=== PATIENT | male | born 1975 | race Caucasian/White ===

== ENCOUNTER 2016-12-01 11:46 | Emergency (ER) | payer MEDICAID ==
[~2016-12-01] VITALS: Ht 175.3 cm; Wt 77.0 kg
[~2016-12-01 11:46] MED LIST: ALBU8.5H3 INH; BUDE10.2 INH; BUSPAR PO; DIVA125T2 PO; DIVA500T2 PO; HALDOL PO; HYDR50CA PO; OMEP40CA6 PO; RISP2TAB3 PO; ZIPR60CA2 PO
[2016-12-01 11:49] VITALS: BP 143/76
[2016-12-01] MEDS ORDERED: ONDANSETRON ODT 4 MG ONE (13:14)
[2016-12-01] MEDS ORDERED: IBUPROFEN 200 MG TABLET ONE (13:14)
[2016-12-01] MEDS ORDERED: IBUPROFEN 200 MG TABLET PO ONE (13:30)
[2016-12-01] MEDS ORDERED: ONDANSETRON ODT 4 MG PO ONE (13:30)
== END 2016-12-01 13:41 | disposition home or self-care (01) ==
LOC: ED 13:38
DX: G43.909 Migraine, unspecified, not intractable, without status migrainosus (principal); I10 Essential (primary) hypertension; E11.9 Type 2 diabetes mellitus without complications; F20.9 Schizophrenia, unspecified; R51 Headache; G89.29 Other chronic pain
CPT/HCPCS: 99283; Q0162

== ENCOUNTER 2016-12-12 11:48 | Emergency (ER) | payer MEDICAID, OTHER ==
[~2016-12-12] VITALS: Ht 165.1 cm; Wt 73.0 kg
[2016-12-12 11:51] VITALS: BP 143/84
[2016-12-12] MEDS ORDERED: HYDROcodone/APAP 5/325 TABLET PO ONE (12:30)
[2016-12-12] MEDS ORDERED: HYDROcodone/APAP 5/325 TABLET ONE (12:43)
== END 2016-12-12 13:04 | disposition home or self-care (01) ==
LOC: ED 12:55
DX: S83.92XA Sprain of unspecified site of left knee, initial encounter (principal); X58.XXXA Exposure to other specified factors, initial encounter; Y93.89 Activity, other specified; Y92.89 Other specified places as the place of occurrence of the external cause; Y99.8 Other external cause status
CPT/HCPCS: 99284

== ENCOUNTER 2017-01-04 18:41 | Emergency (ER) | payer MEDICAID, OTHER ==
[~2017-01-04] VITALS: Ht 152.4 cm; Wt 76.3 kg
[2017-01-04 19:48] VITALS: BP 127/67
[2017-01-04 19:50] LABS: BLOOD UREA NITROGEN 11 mg/dL (7-18)
[2017-01-04 19:55] LABS: IS PT STATUS REG ER OR PRE ER? YES
== END 2017-01-04 20:34 | disposition home or self-care (01) ==
LOC: ED 20:20
DX: J44.1 Chronic obstructive pulmonary disease with (acute) exacerbation (principal); G43.909 Migraine, unspecified, not intractable, without status migrainosus; I10 Essential (primary) hypertension; E11.9 Type 2 diabetes mellitus without complications; K21.9 Gastro-esophageal reflux disease without esophagitis; F20.9 Schizophrenia, unspecified
CPT/HCPCS: 36415; 71020; 80048; 82040; 84484; 85025; 93005; 99285

== ENCOUNTER 2017-03-04 11:35 | Emergency (ER) | payer MEDICAID ==
[~2017-03-04] VITALS: Ht 167.6 cm; Wt 77.2 kg
[2017-03-04 11:36] VITALS: BP 145/75
== END 2017-03-04 12:26 | disposition home or self-care (01) ==
LOC: ED 12:12
DX: J45.41 Moderate persistent asthma with (acute) exacerbation (principal); E11.9 Type 2 diabetes mellitus without complications; I10 Essential (primary) hypertension; F20.9 Schizophrenia, unspecified; F31.9 Bipolar disorder, unspecified
CPT/HCPCS: 99283

== ENCOUNTER 2017-05-09 17:40 | Emergency (ER) | payer MEDICAID ==
[~2017-05-09] VITALS: Ht 170.2 cm; Wt 75.8 kg
[~2017-05-09 17:40] MED LIST changes: -ALBU8.5H3 INH; +ALBU8.5H8 INH
[2017-05-09] MEDS ORDERED: SUMA100T4 PO (17:57)
[2017-05-09] MEDS ORDERED: PROCHLORPERAZINE 5 MG/ML, 2ML ONE (18:18)
[2017-05-09] MEDS ORDERED: DIPHENHYDRAMINE 50 MG/ML, 1ML ONE (18:18)
[2017-05-09] MEDS ORDERED: DIPHENHYDRAMINE 50 MG/ML, 1ML IVPush ONE (18:30)
[2017-05-09] MEDS ORDERED: PROCHLORPERAZINE 5 MG/ML, 2ML IVPush ONE (18:30)
[2017-05-09] MEDS ORDERED: SODIUM CHLORIDE 0.9% 1,000ML IVBOLUS ONE (18:30)
[2017-05-09] MEDS ORDERED: SODIUM CHLORIDE FLUSH 10ML SYR IVF ONE (18:30)
[2017-05-09] MEDS ORDERED: MORPHINE SULFATE 4 MG/ML, 1ML ONE (19:23)
[2017-05-09] MEDS ORDERED: MORPHINE SULFATE 4 MG/ML, 1ML IVPush PRN (19:30)
[2017-05-09 21:02] VITALS: BP 131/76
== END 2017-05-09 21:04 | disposition home or self-care (01) ==
LOC: ED 18:52
DX: G44.89 Other headache syndrome (principal); I10 Essential (primary) hypertension; E11.9 Type 2 diabetes mellitus without complications; J44.9 Chronic obstructive pulmonary disease, unspecified; F20.9 Schizophrenia, unspecified; K21.9 Gastro-esophageal reflux disease without esophagitis; F31.9 Bipolar disorder, unspecified; Z88.6 Allergy status to analgesic agent
CPT/HCPCS: 70450; 96361; 96374; 96375; 99285; J0780; J1200; J7030

== ENCOUNTER 2017-05-17 12:35 | Emergency (ER) | payer MEDICAID ==
[~2017-05-17] VITALS: Ht 170.2 cm; Wt 74.5 kg
[~2017-05-17 12:35] MED LIST changes: +SUMA100T4 PO
[2017-05-17 12:36] VITALS: BP 166/79
[2017-05-17] MEDS ORDERED: HYDROcodone/APAP 5/325 TABLET PO ONE (13:30)
[2017-05-17] MEDS ORDERED: HYDROcodone/APAP 5/325 TABLET ONE (13:51)
== END 2017-05-17 14:20 | disposition home or self-care (01) ==
LOC: ED 14:17
DX: S22.42XA Multiple fractures of ribs, left side, initial encounter for closed fracture (principal); E11.9 Type 2 diabetes mellitus without complications; F20.9 Schizophrenia, unspecified; F31.9 Bipolar disorder, unspecified; I10 Essential (primary) hypertension; J44.9 Chronic obstructive pulmonary disease, unspecified; G89.29 Other chronic pain; R51 Headache; V29.3XXA Motorcycle rider (driver) (passenger) injured in unspecified nontraffic accident, initial encounter; Y93.55 Activity, bike riding; Y92.480 Sidewalk as the place of occurrence of the external cause; Y99.8 Other external cause status
CPT/HCPCS: 99284

== ENCOUNTER 2017-07-06 02:20 | Emergency (ER) | payer SELFPAY ==
[~2017-07-06] VITALS: Ht 170.2 cm; Wt 74.3 kg
[2017-07-06 02:22] VITALS: BP 150/86
[2017-07-06] MEDS ORDERED: HYDROcodone/APAP 5/325 TABLET PO ONE (03:00)
[2017-07-06] MEDS ORDERED: HYDROcodone/APAP 5/325 TABLET ONE (03:01)
== END 2017-07-06 04:24 | disposition home or self-care (01) ==
LOC: ED 02:38
DX: M54.12 Radiculopathy, cervical region (principal); I10 Essential (primary) hypertension; J44.9 Chronic obstructive pulmonary disease, unspecified; G43.909 Migraine, unspecified, not intractable, without status migrainosus; E11.9 Type 2 diabetes mellitus without complications
CPT/HCPCS: 72125; 99284; J7512

== ENCOUNTER 2017-07-28 06:12 | Emergency (ER) | payer SELFPAY ==
[~2017-07-28] VITALS: Ht 170.2 cm; Wt 74.8 kg
[2017-07-28 07:06] VITALS: BP 119/78
[2017-07-28] MEDS ORDERED: OXYcodone/APAP 5/325MG TABLET ONE (07:13)
[2017-07-28] MEDS ORDERED: IBUPROFEN 200 MG TABLET ONE (07:13)
[2017-07-28] MEDS ORDERED: DIAZEPAM 5 MG TABLET ONE (07:14)
[2017-07-28] MEDS ORDERED: DIAZEPAM 5 MG TABLET PO ONE (07:30)
[2017-07-28] MEDS ORDERED: OXYcodone/APAP 5/325MG TABLET PO ONE (07:30)
[2017-07-28] MEDS ORDERED: IBUPROFEN 200 MG TABLET PO ONE (07:30)
== END 2017-07-28 08:02 | disposition home or self-care (01) ==
LOC: ED 06:46
DX: S46.911A Strain of unspecified muscle, fascia and tendon at shoulder and upper arm level, right arm, initial encounter (principal); M54.12 Radiculopathy, cervical region; G43.909 Migraine, unspecified, not intractable, without status migrainosus; I10 Essential (primary) hypertension; E11.9 Type 2 diabetes mellitus without complications; J44.9 Chronic obstructive pulmonary disease, unspecified; K21.9 Gastro-esophageal reflux disease without esophagitis; X58.XXXA Exposure to other specified factors, initial encounter; Y93.89 Activity, other specified; Y92.89 Other specified places as the place of occurrence of the external cause; Y99.8 Other external cause status
CPT/HCPCS: 99284

== ENCOUNTER 2018-04-17 12:27 | Emergency (ER) | payer SELFPAY ==
[~2018-04-17] VITALS: Ht 167.6 cm; Wt 79.1 kg
[2018-04-17] MEDS ORDERED: SODIUM CHLORIDE 0.9% 1,000ML IVBOLUS ONE (13:00)
[2018-04-17] MEDS ORDERED: MORPHINE SULFATE 4 MG/ML, 1ML IVPush PRN (13:00)
[2018-04-17] MEDS ORDERED: SODIUM CHLORIDE FLUSH 10ML SYR IVF ONE (13:00)
[2018-04-17 13:24] LABS: BASOPHILS # (AUTO) 0.03 x10^3/uL (0-0.1); BASOPHILS % (AUTO) 1 % (0-1); EOSINOPHILS % (AUTO) 0 % (1-7); LYMPHOCYTES # (AUTO) 0.92 x10^3/uL (1-3.4); LYMPHOCYTES % (AUTO) 16 % (22-44); MD NO; MEAN CORPUSCULAR HEMOGLOBIN 28.3 pg (27.5-34.5); MEAN CORPUSCULAR HGB CONC 33.6 g/dL (33.2-36.2); MEAN CORPUSCULAR VOLUME 84.1 fL (81-97); MEAN PLATELET VOLUME 8.7 fL (7.4-10.4); MONOCYTES # (AUTO) 0.44 x10^3/uL (0.2-0.8); MONOCYTES % (AUTO) 8 % (2-9); NEUTROPHILS # (AUTO) 4.35 x10^3/uL (1.8-6.8); NEUTROPHILS % (AUTO) 76 % (42-75); PLATELET COUNT 211 x10^3/uL (130-400); RED BLOOD COUNT 4.81 x10^6/uL (4.38-5.82)
[2018-04-17 13:33] LABS: ALANINE AMINOTRANSFERASE 21 U/L (12-78); ALBUMIN 3.5 g/dL (3.4-5.0); ANION GAP 4 mmol/L (5-15); CALCIUM 8.5 mg/dL (8.5-10.1); CHLORIDE 108 mmol/L (98-107); CREATININE 0.93 mg/dL (0.7-1.3)
[2018-04-17 13:36] LABS: ALKALINE PHOSPHATASE 66 U/L (45-117); BILIRUBIN,TOTAL 0.3 mg/dL (0.2-1.0); TOTAL PROTEIN 6.7 g/dL (6.4-8.2)
[2018-04-17] MEDS ORDERED: MORPHINE SULFATE 4 MG/ML, 1ML ONE (14:03)
[2018-04-17] MEDS ORDERED: OMNIPAQUE 350 MG/ML, 100ML BOTTLE ONE (14:40)
[2018-04-17 15:37] LABS: MICROSCOPIC NOT IND
[2018-04-17 15:43] LABS: CULTURE INDICATED? NO
[2018-04-17] MEDS ORDERED: ACETAMINOPHEN 500 MG TABLET ONE (15:55)
[2018-04-17 15:59] VITALS: BP 129/66
[2018-04-17] MEDS ORDERED: ACETAMINOPHEN 500 MG TABLET PO ONE (16:00)
== END 2018-04-17 16:27 | disposition home or self-care (01) ==
LOC: ED 15:24
DX: R10.33 Periumbilical pain (principal); R19.7 Diarrhea, unspecified; G43.909 Migraine, unspecified, not intractable, without status migrainosus; J44.9 Chronic obstructive pulmonary disease, unspecified; K21.9 Gastro-esophageal reflux disease without esophagitis; F31.9 Bipolar disorder, unspecified; F17.200 Nicotine dependence, unspecified, uncomplicated; F20.9 Schizophrenia, unspecified; R10.84 Generalized abdominal pain
CPT/HCPCS: 36415; 74177; 80053; 81003; 83605; 83690; 85025; 96361; 96374; 99285; J7030; Q9967

== ENCOUNTER 2018-06-08 01:39 | Emergency (ER) | payer SELFPAY ==
[~2018-06-08] VITALS: Ht 167.6 cm; Wt 75.6 kg
[2018-06-08] MEDS ORDERED: ACETAMINOPHEN 500 MG TABLET PO ONE (02:00)
[2018-06-08] MEDS ORDERED: ACETAMINOPHEN 500 MG TABLET ONE (02:14)
[2018-06-08] MEDS ORDERED: HYDROcodone/APAP 5/325 TABLET PO ONE (03:30)
[2018-06-08] MEDS ORDERED: HYDROcodone/APAP 5/325 TABLET ONE (03:34)
[2018-06-08 03:36] VITALS: BP 122/72
== END 2018-06-08 03:48 | disposition home or self-care (01) ==
LOC: ED 02:54
DX: S92.355A Nondisplaced fracture of fifth metatarsal bone, left foot, initial encounter for closed fracture (principal); J44.9 Chronic obstructive pulmonary disease, unspecified; K21.9 Gastro-esophageal reflux disease without esophagitis; J45.909 Unspecified asthma, uncomplicated; F20.9 Schizophrenia, unspecified; F17.200 Nicotine dependence, unspecified, uncomplicated; X58.XXXA Exposure to other specified factors, initial encounter; Y93.89 Activity, other specified; Y92.89 Other specified places as the place of occurrence of the external cause; Y99.8 Other external cause status
CPT/HCPCS: 99284

== ENCOUNTER 2018-08-15 20:17 | Emergency (ER) | payer SELFPAY ==
[~2018-08-15] VITALS: Ht 167.6 cm; Wt 75.0 kg
--- NOTE | 2018-08-15 20:35 | NUR ---
Assumed care of patient. C/O COREA and "pain from my head to my toes." C/O N/V. Will continue to monitor.
[2018-08-15 20:58] LABS: BASOPHILS # (AUTO) 0.02 x10^3/uL (0-0.1); BASOPHILS % (AUTO) 0 % (0-1); EOSINOPHILS # (AUTO) 0.11 x10^3/uL (0-0.4); EOSINOPHILS % (AUTO) 2 % (1-7); LYMPHOCYTES # (AUTO) 1.34 x10^3/uL (1-3.4); LYMPHOCYTES % (AUTO) 25 % (22-44); MD NO; MEAN CORPUSCULAR HEMOGLOBIN 29.6 pg (27.5-34.5); MEAN CORPUSCULAR HGB CONC 33.4 g/dL (33.2-36.2); MEAN CORPUSCULAR VOLUME 88.6 fL (81-97); MEAN PLATELET VOLUME 8.5 fL (7.4-10.4); MONOCYTES # (AUTO) 0.39 x10^3/uL (0.2-0.8); MONOCYTES % (AUTO) 7 % (2-9); NEUTROPHILS # (AUTO) 3.63 x10^3/uL (1.8-6.8); NEUTROPHILS % (AUTO) 66 % (42-75); PLATELET COUNT 231 x10^3/uL (130-400); RED BLOOD COUNT 4.85 x10^6/uL (4.38-5.82); RED CELL DISTRIBUTION WIDTH 17.5 % (9.4-14.8)
[2018-08-15 21:12] LABS: ALBUMIN 3.4 g/dL (3.4-5.0); ANION GAP 6 mmol/L (5-15); CHLORIDE 109 mmol/L (98-107)
[2018-08-15 21:16] LABS: ALANINE AMINOTRANSFERASE 23 U/L (12-78); ALKALINE PHOSPHATASE 48 U/L (45-117); BILIRUBIN,TOTAL 0.4 mg/dL (0.2-1.0); CREATININE 0.73 mg/dL (0.7-1.3)
[2018-08-15] MEDS ORDERED: HYDROcodone/APAP 5/325 TABLET ONE (21:16)
[2018-08-15] MEDS ORDERED: ONDANSETRON ODT 4 MG ONE (21:16)
[2018-08-15 21:19] VITALS: BP 109/52
--- NOTE | 2018-08-15 21:20 | NUR ---
Meds admin. VSS. No other needs. Encouraged patient to provide UA.
[2018-08-15] MEDS ORDERED: ONDANSETRON ODT 4 MG PO ONE (21:30)
[2018-08-15] MEDS ORDERED: HYDROcodone/APAP 5/325 TABLET PO ONE (21:30)
--- NOTE | 2018-08-15 21:40 | NUR ---
MD Santana states to DC patient without waiting for urine.
--- NOTE | 2018-08-15 21:49 | NUR ---
Patient/Caregiver given discharge instructions and they have confirmed that they understand the instructions. Patient ambulatory with steady gait.
== END 2018-08-15 21:50 | disposition home or self-care (01) ==
LOC: ED 21:10
DX: K57.32 Diverticulitis of large intestine without perforation or abscess without bleeding (principal); J44.9 Chronic obstructive pulmonary disease, unspecified; K21.9 Gastro-esophageal reflux disease without esophagitis
CPT/HCPCS: 36415; 80053; 83690; 85025; 99283; Q0162

== ENCOUNTER 2018-09-04 03:31 | Emergency (ER) | payer SELFPAY ==
[~2018-09-04] VITALS: Ht 168.9 cm; Wt 75.3 kg
--- NOTE | 2018-09-04 03:44 | NUR ---
GENTLEMAN HERE NOTING THAT YESTERDAY MORNING HE ATE A HASH BROWN SANDWHICH AND DEVELOPED LOWER ABD PAIN AND VOMITED/ AT MIDNIGHT, ATE MALDIVIAN TOAST AND STATES THAT PAIN RETURNED LOWER ABD AND STATES THAT HE HAD SEVERAL EPISODES OF BLOOD IN HIS STOOL, THIS OCCURRED AT WORK. STATES THAT HE HAS HX OF CROHNS AND DIVERTICULITIS, STATES THAT HE DOES NOT HAVE A DOCTOR HE CAN NOT AFFORD ONE BECAUSE HE DOES NOT HAVE INSURANCE
--- NOTE | 2018-09-04 03:54 | NUR ---
PT TO BATHROOM TO PROVIDE URINE SPECIMEN, PWD, NAD DENIES DIZZINESS WHILE AMBULATING. MD TO ROOM FOR EVAL.
--- NOTE | 2018-09-04 03:57 | NUR ---
PT UNABLE TO VOID
[2018-09-04] MEDS ORDERED: DICYCLOMINE 10 MG/ML, 2ML ONE (04:20)
[2018-09-04] MEDS ORDERED: ONDANSETRON 2MG/ML, 2ML ONE (04:20)
[2018-09-04] MEDS ORDERED: SODIUM CHLORIDE FLUSH 10ML SYR IVF ONE (04:30)
[2018-09-04] MEDS ORDERED: DICYCLOMINE 10 MG/ML, 2ML IM ONE (04:30)
[2018-09-04] MEDS ORDERED: SODIUM CHLORIDE 0.9% 1,000ML IVBOLUS ONE (04:30)
[2018-09-04] MEDS ORDERED: ONDANSETRON 2MG/ML, 2ML IVPush ONE (04:30)
--- NOTE | 2018-09-04 04:30 | NUR ---
PT MEDICATED PER ORDER, AWARE THAT BENTYL WITH BE VERY EFFECTIVE FOR TREATING HIS ABD PAIN, PT IS SKEPITAL. WILL RE-EVAL. NO N/V/D SINCE ARRIVAL HERE.
[2018-09-04 04:39] LABS: BASOPHILS # (AUTO) 0.04 x10^3/uL (0-0.1); BASOPHILS % (AUTO) 1 % (0-1); EOSINOPHILS # (AUTO) 0.09 x10^3/uL (0-0.4); EOSINOPHILS % (AUTO) 2 % (1-7); LYMPHOCYTES # (AUTO) 1.46 x10^3/uL (1-3.4); LYMPHOCYTES % (AUTO) 26 % (22-44); MD NO; MEAN CORPUSCULAR HEMOGLOBIN 29.6 pg (27.5-34.5); MEAN CORPUSCULAR HGB CONC 33.1 g/dL (33.2-36.2); MEAN CORPUSCULAR VOLUME 89.4 fL (81-97); MEAN PLATELET VOLUME 9.2 fL (7.4-10.4); MONOCYTES % (AUTO) 7 % (2-9); NEUTROPHILS # (AUTO) 3.66 x10^3/uL (1.8-6.8); NEUTROPHILS % (AUTO) 65 % (42-75); PLATELET COUNT 235 x10^3/uL (130-400); RED BLOOD COUNT 5.14 x10^6/uL (4.38-5.82); RED CELL DISTRIBUTION WIDTH 16.2 % (9.4-14.8)
--- NOTE | 2018-09-04 04:48 | NUR ---
PT ATTMEPTING TO VOID AT THIS TIME.
[2018-09-04 04:51] LABS: ALBUMIN 3.9 g/dL (3.4-5.0); ANION GAP 5 mmol/L (5-15); CALCIUM 8.8 mg/dL (8.5-10.1); CHLORIDE 109 mmol/L (98-107)
[2018-09-04 04:55] LABS: ALANINE AMINOTRANSFERASE 27 U/L (12-78); ALKALINE PHOSPHATASE 64 U/L (45-117); BILIRUBIN,TOTAL 0.3 mg/dL (0.2-1.0)
--- NOTE | 2018-09-04 05:02 | NUR ---
URINE COLLECTED AND SENT TO LAB
[2018-09-04 05:03] LABS: MICROSCOPIC NOT IND
[2018-09-04 05:07] LABS: CULTURE INDICATED? NO
[2018-09-04 05:24] VITALS: BP 107/76
== END 2018-09-04 05:27 | disposition home or self-care (01) ==
LOC: ED 03:54
DX: R10.84 Generalized abdominal pain (principal); R11.2 Nausea with vomiting, unspecified; M54.5 Low back pain; J44.9 Chronic obstructive pulmonary disease, unspecified; F20.9 Schizophrenia, unspecified; K21.9 Gastro-esophageal reflux disease without esophagitis; F31.9 Bipolar disorder, unspecified
CPT/HCPCS: 36415; 80053; 81003; 83690; 85025; 96361; 96372; 96374; 99283; J0500; J2405; J7030

== ENCOUNTER 2019-01-07 22:33 | Emergency (ER) | payer SELFPAY ==
[~2019-01-07] VITALS: Ht 167.6 cm; Wt 79.4 kg
--- NOTE | 2019-01-07 22:50 | NUR ---
assessment made. chart up for MD to see.
--- NOTE | 2019-01-07 22:53 | NUR ---
PA at bedside.
[2019-01-07] MEDS ORDERED: HYDROcodone/APAP 5/325 TABLET PO ONE (23:00)
[2019-01-07] MEDS ORDERED: HYDROcodone/APAP 5/325 TABLET ONE (23:05)
--- NOTE | 2019-01-07 23:15 | NUR ---
patient medicated for pain. to X ray.
--- NOTE | 2019-01-07 23:22 | NUR ---
back from X ray. awaiting result.
--- NOTE | 2019-01-07 23:57 | NUR ---
patient discharged with prescriptions and instruction. verbalized understanding.
[2019-01-07 23:58] VITALS: BP 134/79
== END 2019-01-08 | disposition home or self-care (01) ==
LOC: ED 23:40
DX: M54.16 Radiculopathy, lumbar region (principal); F17.200 Nicotine dependence, unspecified, uncomplicated
CPT/HCPCS: 72110; 73523; 99283; J7512

== ENCOUNTER 2019-01-30 03:50 | Emergency (ER) | payer OTHER ==
[~2019-01-30] VITALS: Ht 167.6 cm; Wt 80.5 kg
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
[2019-01-30] MEDS ORDERED: INHALER (04:08)
--- NOTE | 2019-01-30 04:14 | NUR ---
PT TO XRAY
[2019-01-30] MEDS ORDERED: HYDROcodone/APAP 5/325 TABLET ONE (04:59)
[2019-01-30] MEDS ORDERED: HYDROcodone/APAP 5/325 TABLET PO ONE (05:00)
[2019-01-30 05:01] VITALS: BP 135/69
--- NOTE | 2019-01-30 05:02 | NUR ---
W[employer] ASSEMBLER AT BEDSIDE FOR FRAN WRAP TO LEFT KNEE AND CRUCH INSTRUCTIONS
== END 2019-01-30 05:11 | disposition home or self-care (01) ==
LOC: ED 05:00
DX: S83.412A Sprain of medial collateral ligament of left knee, initial encounter (principal); J44.9 Chronic obstructive pulmonary disease, unspecified; K21.9 Gastro-esophageal reflux disease without esophagitis; F17.210 Nicotine dependence, cigarettes, uncomplicated; X50.1XXA Overexertion from prolonged static or awkward postures, initial encounter; Y93.89 Activity, other specified; Y92.811 Bus as the place of occurrence of the external cause; Y99.8 Other external cause status
CPT/HCPCS: 99283

== ENCOUNTER 2019-04-01 20:55 | Emergency (ER) | payer SELFPAY ==
[~2019-04-01] VITALS: Ht 167.6 cm; Wt 80.9 kg
[2019-04-01 21:00] VITALS: BP 154/85
== END 2019-04-01 23:21 | disposition home or self-care (01) ==
LOC: ED 22:17
DX: G43.009 Migraine without aura, not intractable, without status migrainosus (principal); F17.200 Nicotine dependence, unspecified, uncomplicated; J44.9 Chronic obstructive pulmonary disease, unspecified; R11.2 Nausea with vomiting, unspecified
CPT/HCPCS: 96374; 96375; 99283; J0780; J1200

== ENCOUNTER 2019-04-24 15:39 | Emergency (ER) | payer MEDICAID, OTHER ==
[~2019-04-24] VITALS: Ht 165.1 cm; Wt 81.0 kg
[~2019-04-24 15:39] MED LIST changes: +INHALER
--- NOTE | 2019-04-24 16:07 | NUR ---
PT TO ED FOR COUGH, CONGESTION AND COREA X1.5 WEEKS. PT ABLE TO CLEAR SECRETIONS AND SPUTUM. PT CONNECTED TO [employer]. ALL VSS ON RA. AWAITING EDMD ASSESSMENT.
[2019-04-24 16:30] VITALS: BP 117/83
--- NOTE | 2019-04-24 16:31 | NUR ---
pt resting in room. vss. no needs expressed. awaiting edmd assessment.
--- NOTE | 2019-04-24 17:29 | NUR ---
Patient given discharge instructions and they have confirmed that they understand the instructions. Patient ambulatory with steady gait.
[2019-05-15] MEDS ORDERED: NAPR-685 PO (10:37)
== END 2019-04-24 17:30 | disposition home or self-care (01) ==
LOC: ED 17:28
DX: B34.9 Viral infection, unspecified (principal); J44.9 Chronic obstructive pulmonary disease, unspecified; K21.9 Gastro-esophageal reflux disease without esophagitis; F17.210 Nicotine dependence, cigarettes, uncomplicated
CPT/HCPCS: 71046; 99283

== ENCOUNTER 2019-06-13 16:18 | Emergency (ER) | payer MEDICAID ==
[~2019-06-13] VITALS: Ht 165.1 cm; Wt 80.6 kg
[~2019-06-13 16:18] MED LIST changes: +NAPR-685 PO; +OMEP40CA42 PO; -OMEP40CA6 PO
[2019-06-13] MEDS ORDERED: HYDROcodone/APAP 5/325 TABLET ONE (16:40)
[2019-06-13] MEDS ORDERED: HYDROcodone/APAP 5/325 TABLET PO ONE (17:00)
[2019-06-13 17:22] VITALS: BP 128/84
--- NOTE | 2019-06-13 17:23 | NUR ---
Patient/Caregiver given discharge instructions and they have confirmed that they understand the instructions. Patient ambulatory with knee immobilizer in place. Pain 01/23
== END 2019-06-13 17:39 | disposition home or self-care (01) ==
LOC: ED 17:26
DX: M13.162 Monoarthritis, not elsewhere classified, left knee (principal); J44.9 Chronic obstructive pulmonary disease, unspecified; K21.9 Gastro-esophageal reflux disease without esophagitis; F31.9 Bipolar disorder, unspecified; R51 Headache; G89.29 Other chronic pain; F20.9 Schizophrenia, unspecified
CPT/HCPCS: 99283

== ENCOUNTER 2019-07-07 22:27 | Emergency (ER) | payer MEDICAID ==
[~2019-07-07] VITALS: Ht 165.1 cm; Wt 78.8 kg
[2019-07-07 22:29] VITALS: BP 143/72
--- NOTE | 2019-07-07 23:21 | NUR ---
PT C/O ACUTE ON CHRONIC RIGHT KNEE PAIN. PT TAKEN TO XRAY
[2019-07-07] MEDS ORDERED: HYDROcodone/APAP 5/325 TABLET ONE (23:40)
--- NOTE | 2019-07-07 23:42 | NUR ---
MEDS ADMIN PER MAR
[2019-07-08] MEDS ORDERED: HYDROcodone/APAP 5/325 TABLET PO ONE
== END 2019-07-08 00:04 | disposition home or self-care (01) ==
LOC: ED 23:19
DX: M17.12 Unilateral primary osteoarthritis, left knee (principal); M25.462 Effusion, left knee; J44.9 Chronic obstructive pulmonary disease, unspecified; G43.909 Migraine, unspecified, not intractable, without status migrainosus; K21.9 Gastro-esophageal reflux disease without esophagitis; I10 Essential (primary) hypertension
CPT/HCPCS: 99283

== ENCOUNTER 2019-09-13 16:32 | Emergency (ER) | payer MEDICAID ==
[~2019-09-13] VITALS: Ht 168.9 cm; Wt 79.8 kg
--- NOTE | 2019-09-13 17:35 | NUR ---
parachute marker: Pt ambulatory to ED room 39 from lobby at this time.
--- NOTE | 2019-09-13 17:43 | NUR ---
PT C/O POSTERIOR NECK PAIN, DENIES TRAUMA. PAIN RADIATES DOWN BACK AND T/O MARY JO LEGS, ACROSS SHOULDERS WITH INTERMITANT TINGLING OF MARY JO HANDS. RPTS INTERMITANT UNCONTROLED BLADDER. "I'VE PISSED MY PANTS A FEW TIMES" BP AND SP02 MONITORING IN PLACE, CALL LIGHT W/I REACH.
--- NOTE | 2019-09-13 17:50 | NUR ---
DR ELIZONDO AT BEDSIDE, PT ASSESSMENT REVIEWED.
[2019-09-13] MEDS ORDERED: CYCLOBENZAPRINE 10 MG TABLET ONE (18:09)
--- NOTE | 2019-09-13 18:15 | NUR ---
PT LYING ON GURNEY. PAIN 04/25. REPORTS PAIN FROM POSTERIOR NECK TO LOWER BACK, TINGLING TO HANDS & FEET. LIMITED ROM UPPER EXTREMITIES AT SHOULDERS. LIMITED ROM LOWER EXTREMETIES AT KNEES. ABLE TO MOVE FEET W/OUT PAIN OR DIFFICULTY. REPORTS HE TOOK TYLENOL AND IBUPROFEN THIS MORNING.
--- NOTE | 2019-09-13 18:19 | NUR ---
FLEXERIL GIVEN PER EMAR
[2019-09-13] MEDS ORDERED: CYCLOBENZAPRINE 10 MG TABLET PO ONE (18:30)
--- NOTE | 2019-09-13 18:46 | NUR ---
PT VOIDED 300ML INTO URINAL. POST VOID RESIDUAL BLADDER SCAN COMPLETED PER ASHLEY LEE: 47ml.
--- NOTE | 2019-09-13 18:52 | NUR ---
PT IN LT LATERAL POSITION ON GURNEY; REQUESTING PAIN MED; ERP WILL BE NOTIFIED.
[2019-09-13] MEDS ORDERED: OXYcodone/APAP 5/325MG TABLET PO ONE (19:30)
[2019-09-13] MEDS ORDERED: OXYcodone/APAP 5/325MG TABLET ONE (19:51)
[2019-09-13 19:54] VITALS: BP 106/55
--- NOTE | 2019-09-13 19:54 | NUR ---
PT ABLE TO SIT UP FROM SUPINE POSITION W/OUT OBVIOUS DIFFICULTY. OXY/APAP GIVEN PER EMAR.
== END 2019-09-13 20:06 | disposition home or self-care (01) ==
LOC: ED 19:55
DX: S39.012A Strain of muscle, fascia and tendon of lower back, initial encounter (principal); X58.XXXA Exposure to other specified factors, initial encounter; Y93.89 Activity, other specified; Y92.89 Other specified places as the place of occurrence of the external cause; Y99.0 Civilian activity done for income or pay
CPT/HCPCS: 99283

== ENCOUNTER 2019-10-01 00:22 | Emergency (ER) | payer MEDICAID ==
[~2019-10-01] VITALS: Ht 167.6 cm; Wt 80.0 kg
--- NOTE | 2019-10-01 02:00 | NUR ---
pt to room from lobby
[2019-10-01] MEDS ORDERED: HYDROcodone/APAP 5/325 TABLET ONE (03:11)
[2019-10-01] MEDS ORDERED: HYDROcodone/APAP 5/325 TABLET PO ONE (03:30)
[2019-10-01 03:40] VITALS: BP 126/92
== END 2019-10-01 03:43 | disposition home or self-care (01) ==
LOC: ED 03:12
DX: G89.29 Other chronic pain (principal); M25.552 Pain in left hip; M25.551 Pain in right hip; Z88.5 Allergy status to narcotic agent
CPT/HCPCS: 99282

== ENCOUNTER 2020-01-02 22:40 | Emergency (ER) | payer MEDICAID ==
[~2020-01-02] VITALS: Ht 167.6 cm; Wt 91.8 kg
[2020-01-02] MEDS ORDERED: HYDROmorphone 1 MG/ML, 1ML INJ IM ONE (23:30)
[2020-01-02] MEDS ORDERED: METHOCARBAMOL 750 MG TABLET PO ONE (23:30)
[2020-01-02] MEDS ORDERED: METHOCARBAMOL 750 MG TABLET ONE (23:47)
[2020-01-02] MEDS ORDERED: HYDROmorphone 1 MG/ML, 1ML INJ ONE (23:48)
[2020-01-02] MEDS ORDERED: ONDANSETRON ODT 4 MG ONE (23:54)
[2020-01-03] MEDS ORDERED: ONDANSETRON ODT 4 MG PO ONE
[2020-01-03 00:55] VITALS: BP 132/88
== END 2020-01-03 00:57 | disposition home or self-care (01) ==
LOC: ED 01-03 00:15
DX: M54.5 Low back pain (principal); R11.0 Nausea; K21.9 Gastro-esophageal reflux disease without esophagitis; I10 Essential (primary) hypertension; J44.9 Chronic obstructive pulmonary disease, unspecified; F17.200 Nicotine dependence, unspecified, uncomplicated
CPT/HCPCS: 96372; 99283; J1170; Q0162

== ENCOUNTER 2020-02-09 21:54 | Emergency (ER) | payer MEDICAID ==
[~2020-02-09] VITALS: Ht 167.6 cm; Wt 84.4 kg
[2020-02-09 23:00] LABS: BASOPHILS # (AUTO) 0.04 x10^3/uL (0-0.1); BASOPHILS % (AUTO) 0 % (0-1); EOSINOPHILS # (AUTO) 0.13 x10^3/uL (0-0.4); EOSINOPHILS % (AUTO) 1 % (1-7); LYMPHOCYTES % (AUTO) 23 % (22-44); MD NO; MEAN CORPUSCULAR HEMOGLOBIN 29.2 pg (27.5-34.5); MEAN CORPUSCULAR HGB CONC 32.4 g/dL (33.2-36.2); MEAN PLATELET VOLUME 9.3 fL (7.4-10.4); MONOCYTES # (AUTO) 0.75 x10^3/uL (0.2-0.8); MONOCYTES % (AUTO) 7 % (2-9); NEUTROPHILS # (AUTO) 6.94 x10^3/uL (1.8-6.8); NEUTROPHILS % (AUTO) 68 % (42-75); PLATELET COUNT 299 x10^3/uL (130-400); RED BLOOD COUNT 5.32 x10^6/uL (4.38-5.82); RED CELL DISTRIBUTION WIDTH 15.2 % (9.4-14.8)
[2020-02-09 23:10] LABS: ANION GAP 5 mmol/L (5-15); CALCIUM 9.2 mg/dL (8.5-10.1); CHLORIDE 104 mmol/L (98-107); CREATININE 1.13 mg/dL (0.7-1.3)
[2020-02-10 01:04] VITALS: BP 137/86
--- NOTE | 2020-02-10 01:05 | NUR ---
PT RESTING IN BED C/O N/V X3 DAYS, HX DIVERTICULITIS, VSS
[2020-02-10] MEDS ORDERED: ONDANSETRON ODT 8 MG PO ONE (01:30)
[2020-02-10] MEDS ORDERED: DICYCLOMINE 20 MG TABLET PO ONE (01:30)
[2020-02-10 01:31] LABS: MICROSCOPIC NOT IND
[2020-02-10] MEDS ORDERED: ONDANSETRON ODT 8 MG ONE (01:45)
[2020-02-10] MEDS ORDERED: DICYCLOMINE 20 MG TABLET ONE (01:45)
== END 2020-02-10 02:02 | disposition home or self-care (01) ==
LOC: ED 02-10 01:30
DX: R10.32 Left lower quadrant pain (principal); R11.2 Nausea with vomiting, unspecified; R19.7 Diarrhea, unspecified; R50.9 Fever, unspecified; F17.210 Nicotine dependence, cigarettes, uncomplicated; J44.9 Chronic obstructive pulmonary disease, unspecified; I10 Essential (primary) hypertension
CPT/HCPCS: 36415; 74176; 80048; 81003; 85025; 99284; 99406; Q0162

== ENCOUNTER 2020-02-13 14:32 | Emergency (ER) | payer MEDICAID ==
[~2020-02-13] VITALS: Ht 165.1 cm; Wt 88.1 kg
[2020-02-13 15:13] LABS: BASOPHILS # (AUTO) 0.04 x10^3/uL (0-0.1); BASOPHILS % (AUTO) 1 % (0-1); EOSINOPHILS # (AUTO) 0.05 x10^3/uL (0-0.4); EOSINOPHILS % (AUTO) 1 % (1-7); LYMPHOCYTES # (AUTO) 1.27 x10^3/uL (1-3.4); LYMPHOCYTES % (AUTO) 29 % (22-44); MD NO; MEAN CORPUSCULAR HEMOGLOBIN 29.4 pg (27.5-34.5); MEAN CORPUSCULAR HGB CONC 32.5 g/dL (33.2-36.2); MEAN CORPUSCULAR VOLUME 90.4 fL (81-97); MEAN PLATELET VOLUME 8.8 fL (7.4-10.4); MONOCYTES # (AUTO) 0.34 x10^3/uL (0.2-0.8); MONOCYTES % (AUTO) 8 % (2-9); NEUTROPHILS # (AUTO) 2.62 x10^3/uL (1.8-6.8); NEUTROPHILS % (AUTO) 61 % (42-75); PLATELET COUNT 210 x10^3/uL (130-400); RED BLOOD COUNT 4.92 x10^6/uL (4.38-5.82); RED CELL DISTRIBUTION WIDTH 15.6 % (9.4-14.8)
[2020-02-13 15:21] LABS: ALANINE AMINOTRANSFERASE 27 U/L (12-78); ALBUMIN 3.4 g/dL (3.4-5.0); ANION GAP 1 mmol/L (5-15); CALCIUM 8.5 mg/dL (8.5-10.1); CHLORIDE 111 mmol/L (98-107); CREATININE 0.94 mg/dL (0.7-1.3)
[2020-02-13 15:23] LABS: ALKALINE PHOSPHATASE 62 U/L (45-117); BILIRUBIN,TOTAL 0.2 mg/dL (0.2-1.0); TOTAL PROTEIN 6.4 g/dL (6.4-8.2)
[2020-02-13 15:37] LABS: MICROSCOPIC NOT IND
[2020-02-13] MEDS ORDERED: PROMETHAZINE 25 MG/ML, 1ML ONE (15:47)
[2020-02-13 15:52] VITALS: BP 120/77
--- NOTE | 2020-02-13 15:57 | NUR ---
PT HERE WITH ABD DISCOMFORT AND NAUSEA, RECENT ADMIT FOR SAME. PT STATES HIS "BELLY FEELS NO BETTER SINCE HERE LAST" NO COMPLAINTS OF DIARRHEA. PT DENIES SOB/FEVER/CP PT TO BP/CONT PULSE OX. PT MEDICATED PER OCT. UA COLLECTED AND SENT TO LAB
[2020-02-13] MEDS ORDERED: PROMETHAZINE 25 MG/ML, 1ML IM ONE (16:00)
[2020-02-13] MEDS ORDERED: ACETAMINOPHEN 325 MG TABLET ONE (16:41)
[2020-02-13] MEDS ORDERED: ACETAMINOPHEN 325 MG TABLET PO ONE (17:00)
== END 2020-02-13 17:39 ==
LOC: ED 15:07
DX: R10.84 Generalized abdominal pain (principal); G89.29 Other chronic pain; R11.2 Nausea with vomiting, unspecified
CPT/HCPCS: 36415; 74021; 80053; 81003; 83690; 85025; 96372; 99284; J2550

== ENCOUNTER 2020-02-18 20:36 | Emergency (ER) | payer MEDICAID ==
[~2020-02-18] VITALS: Ht 167.6 cm; Wt 88.9 kg
[2020-02-18] MEDS ORDERED: DICYCLOMINE 10 MG/ML, 2ML IM ONE (21:00)
[2020-02-18] MEDS ORDERED: METOCLOPRAMIDE 5 MG/ML, 2ML IM ONE (21:00)
--- NOTE | 2020-02-18 21:00 | NUR ---
Pt medicated per MAR, pt c/o abdominal pain and n/v. Pt states "i can't sit up without my stomach hurting, i have to stay laying down."
[2020-02-18] MEDS ORDERED: METOCLOPRAMIDE 5 MG/ML, 2ML ONE (21:07)
[2020-02-18] MEDS ORDERED: DICYCLOMINE 10 MG/ML, 2ML ONE (21:08)
[2020-02-18 22:08] VITALS: BP 126/80
== END 2020-02-18 22:20 | disposition home or self-care (01) ==
LOC: ED 22:18
DX: R10.84 Generalized abdominal pain (principal); R11.2 Nausea with vomiting, unspecified; R19.7 Diarrhea, unspecified; R94.31 Abnormal electrocardiogram [ECG] [EKG]; I10 Essential (primary) hypertension; J44.9 Chronic obstructive pulmonary disease, unspecified; F17.210 Nicotine dependence, cigarettes, uncomplicated
CPT/HCPCS: 93005; 96372; 99284; J0500; J2765

== ENCOUNTER 2020-05-06 05:37 | Emergency (ER) | payer MEDICAID ==
[~2020-05-06] VITALS: Ht 167.6 cm; Wt 88.0 kg
[2020-05-06] MEDS ORDERED: HYDROcodone/APAP 5/325 TABLET PO ONE (06:00)
[2020-05-06] MEDS ORDERED: HYDROcodone/APAP 5/325 TABLET ONE (06:08)
--- NOTE | 2020-05-06 06:10 | NUR ---
PT IN IMAGING AT THIS TIME
[2020-05-06 06:30] VITALS: BP 126/87
--- NOTE | 2020-05-06 06:30 | NUR ---
PT MEDICATED PER EMAR. 5 RIGHTS ADDRESSED.
== END 2020-05-06 08:02 | disposition home or self-care (01) ==
LOC: ED 06:42
DX: M54.41 Lumbago with sciatica, right side (principal); G89.29 Other chronic pain; M25.551 Pain in right hip; K21.9 Gastro-esophageal reflux disease without esophagitis; I10 Essential (primary) hypertension; J45.909 Unspecified asthma, uncomplicated
CPT/HCPCS: 72110; 99284

== ENCOUNTER 2020-06-29 15:17 | Emergency (ER) | payer MEDICAID ==
[~2020-06-29] VITALS: Ht 167.6 cm; Wt 84.1 kg
[~2020-06-29 15:17] MED LIST changes: -RISP2TAB3 PO; +RISP2TAB80 PO
--- NOTE | 2020-06-29 15:27 | NUR ---
PT AMBULATED BACK TO ROOM WITHOUT DIFFICULTY.
--- NOTE | 2020-06-29 15:44 | NUR ---
RANJIT SCHERER AT .
[2020-06-29] MEDS ORDERED: ALBUTEROL/IPRATROPIUM 2.5MG/0.5MG, 3 ML ONE (16:54)
[2020-06-29] MEDS ORDERED: ALBUTEROL/IPRATROPIUM 2.5MG/0.5MG, 3 ML NPPB ONE (17:00)
--- NOTE | 2020-06-29 17:01 | NUR ---
PT USING NEBULIZER IN ROOM NOW. UNDERSTANDS POC.
[2020-06-29 17:02] VITALS: BP 114/73
--- NOTE | 2020-06-29 17:21 | NUR ---
PT STATED HE FELT MUCH BETTER AFTER BREATHING TX, "I WAS ABLE TO COUGH UP A BUNCH OF JUNK". D/C INSTRUCTIONS, MEDS & F/U APPT RV'WD WITH PT, HE VERBALIZES UNDERSTANDING. RX GIVEN X3. INSTRUCTED PT TO RETURN TO ED FOR WORSENING SYMPTOMS. PT AMBULATED OUT OF ED WITHOUT DIFFICULTY.
== END 2020-06-29 17:21 | disposition home or self-care (01) ==
LOC: ED 16:16
DX: J45.31 Mild persistent asthma with (acute) exacerbation (principal); R06.00 Dyspnea, unspecified; J20.8 Acute bronchitis due to other specified organisms; R06.02 Shortness of breath; I10 Essential (primary) hypertension; J44.9 Chronic obstructive pulmonary disease, unspecified; M19.90 Unspecified osteoarthritis, unspecified site; K21.9 Gastro-esophageal reflux disease without esophagitis; F17.210 Nicotine dependence, cigarettes, uncomplicated; R51.9 Headache, unspecified
CPT/HCPCS: 71045; 94640; 99283; 99406